=== PATIENT | male | born 1955 | race Caucasian/White ===

== ENCOUNTER 2016-09-16 05:50 | Observation (INO) | payer OTHER ==
[~2016-09-16] VITALS: Ht 167.6 cm; Wt 95.7 kg
[2016-09-16] MEDS ORDERED: PRAV10TA2 PO (06:02)
[2016-09-16] MEDS ORDERED: METF850T2 PO (06:02)
[2016-09-16] MEDS ORDERED: METO-99 PO (06:02)
[2016-09-16] MEDS ORDERED: ASPIRIN 81 MG TABLET CHEW PO ONE (06:30)
[2016-09-16] MEDS ORDERED: ASPIRIN 81 MG TABLET CHEW ONE (06:33)
[2016-09-16 07:10] LABS: BLOOD UREA NITROGEN 10 mg/dL (7-18)
[2016-09-16 07:21] LABS: IS PT STATUS REG ER OR PRE ER? YES
[2016-09-16] MEDS ORDERED: ACETAMINOPHEN 325 MG TABLET PO PRN (09:30)
[2016-09-16] MEDS ORDERED: NITROGLYCERIN 0.4 MG BOTTLE (25 TABS) SL PRN (09:30)
[2016-09-16] MEDS ORDERED: DOCUSATE 100 MG CAPSULE PO PRN (09:30)
[2016-09-16] MEDS ORDERED: HYDROcodone/APAP 5/325 TABLET PO PRN (09:30)
[2016-09-16] MEDS ORDERED: ONDANSETRON ODT 4 MG PO PRN (09:30)
[2016-09-16] MEDS ORDERED: ENALAPRILAT 1.25 MG/ML, 2ML IVPush PRN (09:30)
[2016-09-16] MEDS ORDERED: TRAZODONE 50MG TABLET PO PRN (09:30)
[2016-09-16] MEDS ORDERED: MORPHINE SULFATE 4 MG/ML, 1ML IVPush PRN (09:30)
[2016-09-16 10:08] LABS: IS PT STATUS REG ER OR PRE ER? YES
[2016-09-16] MEDS ORDERED: CEPHALEXIN 500 MG CAPSULE ONE (11:21)
[2016-09-16] MEDS ORDERED: ENOXAPARIN 40 MG/0.4 ML ONE (11:21)
[2016-09-16] MEDS: CEPHALEXIN 500 MG CAPSULE PO SCH ×3 (11:23→20:41)
[2016-09-16] MEDS: ENOXAPARIN 40 MG/0.4 ML SQ SCH (11:23)
[2016-09-16 13:58] VITALS: BP 124/72
[2016-09-16 15:05] LABS: IS PT STATUS REG ER OR PRE ER? NO
[2016-09-16 17:43] VITALS: BP 137/73
[2016-09-16 19:00] VITALS: BP 124/72
[2016-09-16] MEDS: metFORMIN 850 MG TABLET PO SCH (20:41)
[2016-09-16] MEDS ORDERED: PRAVASTATIN 20 MG TABLET PO SCH (21:00)
[2016-09-17 01:08] VITALS: BP 117/74
[2016-09-17] MEDS ORDERED: ASPIRIN 325 MG TABLET EC PO SCH (06:00)
[2016-09-17] MEDS: CEPHALEXIN 500 MG CAPSULE PO SCH ×2 (06:10→12:42)
[2016-09-17 08:00] VITALS: BP 138/80
[2016-09-17] MEDS: metFORMIN 850 MG TABLET PO SCH (08:23)
[2016-09-17] MEDS: ENOXAPARIN 40 MG/0.4 ML SQ SCH (08:23)
[2016-09-17] MEDS ORDERED: METOPROLOL TARTRATE 100 MG TABLET PO SCH (09:00)
[2016-09-17] MEDS ORDERED: REGADENOSON 0.4 MG/5 ML SYRINGE ONE (10:45)
[2016-09-17 14:00] VITALS: BP 133/84
== END 2016-09-17 17:15 | disposition home or self-care (01) ==
LOC: ED 08:07 → EDIP 08:49 → INTOOBSV 08:49 → 5SO 12:43 → DCLOUNGE 09-17 17:00
PROVIDERS: ADMIT Internal Medicine
DX: I20.9 Angina pectoris, unspecified (principal); E11.9 Type 2 diabetes mellitus without complications; E78.00 Pure hypercholesterolemia, unspecified; E78.5 Hyperlipidemia, unspecified; I11.9 Hypertensive heart disease without heart failure; I16.0 Hypertensive urgency; Z87.891 Personal history of nicotine dependence; Z98.890 Other specified postprocedural states
CPT/HCPCS: 36415; 71010; 78452; 80048; 81003; 82040; 82962; 83036; 83880; 84484; 85025; 93005; 93017; 93306; 96372; 99285; A9502; C9898; G0378; J1650; J2785